=== PATIENT | female | born 1985 | race Caucasian/White ===

== ENCOUNTER 2017-10-14 16:08 | Observation (INO) | payer MEDICAID, SELFPAY ==
[2017-10-14 16:09] VITALS: BP 150/93; PULSE 83; RESP 18; TEMP 36.6; O2SAT 100; BMI 30.7
--- NOTE | 2017-10-14 16:28 | CT_ITS ---
STUDY: CT ABDOMEN AND PELVIS WITH CONTRAST REASON FOR EXAM: Female, 32 years old. Right upper quadrant pain RADIATION DOSAGE (If Supplied By Facility): CTDIvol = ( 17.76 ) mGy, DLP = ( 1170.06 ) mGycm TECHNIQUE: Transaxial images were obtained from the dome of the diaphragm to the symphysis pubis without oral contrast. 100mL ml of Isovue 300 contrast was administered. Sagittal and coronal images were reconstructed. Individualized dose optimization techniques were used for this CT. COMPARISON: None. FINDINGS: The visualized lung bases are unremarkable. The visualized portions of the heart are within normal limits. Normal liver. Status post cholecystectomy. No significant dilatation of the extrahepatic biliary system. Normal spleen. Normal pancreas. Normal bilateral adrenal glands. Normal right kidney. Normal left kidney. Normal visualized stomach. Normal small intestine. Normal colon. The appendix is visualized and appears normal. Normal abdominal aorta. Normal inferior vena cava. Normal retroperitoneum. Normal urinary bladder. There are surgical clips in the right inguinal region. 1.3 cm right adnexal cystic nodule. Possible left adnexal 2 cm cystic nodule. Skin thickening and increased attenuation is noted of the right anterior abdominal wall. Normal osseous structures. CT/Abdomen/Pelvis WITH Contrast IMPRESSION: Skin thickening and increased attenuation is noted of the right anterior abdominal wall. Bilateral adnexal cystic nodules. Correlate with pelvic ultrasound if needed. Electronically Signed: Thierry Nichols DO at 18:56 EDT Tel [phone], Service support ,
--- NOTE | 2017-10-14 16:31 | ED.DCSUM_ITS ---
- ER Visit Summary Date of Service: 10/14/17 Chief Complaint: Abdominal pain History of Present Illness: The patient is a 32 F presenting with abdominal pain. Patient states this started approximately one week ago. Pain has been mostly in the right upper quadrant but now also in the right lower quadrant. She states it does not change with eating. History of previous cholecystectomy. She is currently on immunotherapy for stage III melanoma. She was at [facility] yesterday and had lab work done. She continues to have pain today. She has had subjective fever. She has had nausea with no vomiting. She has had diarrhea. Denies urinary complaints. Denies possibility of . Denies other complaints. Physical Examination: Vitals are stable. Patient is afebrile. Alert no acute distress. HEENT exam is unremarkable. Neck is supple. Lungs are clear and equal bilaterally. Heart is regular rate and rhythm. Abdomen is soft right upper and lower quadrant tenderness with no rebound or guarding Extremities are unremarkable. Skin is warm and dry. Remainder of exam is unremarkable. Emergency Department Course and Treatment: Patient is given morphine, phenergan IV. CBC is white count 4.0, hemoglobin 11.6, platelets 135. Chemistries show creatinine 1.09. ALT 63, AST 42, lipase 132. Urinalysis unremarkable. HCG negative. CT abdomen pelvis shows skin thickening in the right anterior abdominal wall, bilateral adnexal cystic nodules. On repeat evaluation, her pain is now in the right upper quadrant under her right lower ribs. She states it is worse when she takes a deep inspiration. She now notes feeling lightheaded intermittently over the past few days. D-dimer was obtained and is 0.53. Unable to obtain CTA chest due to previous contrast given. Ultrasound bilateral lower extremities was obtained and shows no evidence of DVT. On further discussion with the patient she continues to have severe pain. She is given Dilaudid ?2. Will discuss with the hospitalist for admission for intractable pain, rule out PE. Disposition: Admission Impression: Intractable pain, history of stage III melanoma This note was generated with [employer] dictation software. It may contain incorrect words, spelling, and punctuation that were not noted in review of the chart prior to signing ED Disposition - Plan for ED Patient: Chief Complaint: Abd Pain Referrals: Jennie Diamond PA [Primary Care Provider] -
[2017-10-14 16:46] LABS: Bacteria 0 SEEN /hpf (None Seen); Mucous, Urine 0 SEEN /hpf (<or=2+); Red Blood Cells-Urine 0 SEEN /hpf (0-5); White Blood Cells 0 SEEN /hpf (0-5)
[2017-10-14 16:53] LABS: Color, Urine Yellow (Yellow); Glucose, Dipstick Normal (Normal); Ketone-Dipstick Negative (Negative); Leukocyte Esterase-Dipstick Negative /ul (Negative); Nitrite-Dipstick Negative (Negative); Occult Blood-Urine Negative /ul (Negative); Protein-Dipstick Negative (Negative); Urine Bilirubin Dipstick Negative (Negative); Urine Clarity Sl. Cloudy (Clear); Urine Urobilinogen Normal (Normal)
[2017-10-14 17:01] LABS: Squamous Epithelial Cells - UA 0-5 SEEN /hpf (5-10)
[2017-10-14 17:14] LABS: Absolute Lymphocyte Count 2.06 X10^3/ul (0.83-4.51); Absolute Neutrophil Count 1.6 X10^3/uL (2.0-7.7); Basophil# 0.01 X10^3/uL; Basophil% 0.3 % (0-1); Eosinophil# 0.06 X10^3/uL; Eosinophils% 1.5 % (0-5); Hematocrit 33.8 % (37-47); Hemoglobin 11.6 g/dl (12.0-15.0); Lymphocyte # 2.06 X10^3/ul (4.0); Lymphocyte % 51.5 % (19-41); Mean Corp Hgb Conc 34.3 g/gl (32-36); Mean Corpuscular Hgb 28.7 pg (27.0-32.0); Mean Corpuscular Volume 83.7 fL (81-99); Mean Platelet Vol. 10.4 fl (6.2-12.0); Monocyte# 0.26 X10^3/uL; Monocyte% 6.5 % (0-10); Neutrophil # 1.61 X10^3/uL (2.7-7.7); Neutrophil % 40.2 % (47-70); POSITIVE COUNT NO; POSITIVE DIFFERENTIAL NO; POSITIVE MORPHOLOGY NO; Platelet Count 135 K/mm3 (150-450); RBC Distribution Width CV 15.2 % (11.6-14.6); RBC Distribution Width SD 46.8 fl (35.1-43.9); Red Blood Count 4.04 M/mm3 (4.2-5.4)
[2017-10-14] MEDS: proMETHazine 25 MG/ML Syringe 6.25 MG IV (17:31)
[2017-10-14] MEDS: Morphine 4 MG/ML Syringe IV (17:31)
[2017-10-14] MEDS: 0.9% Normal Saline 1,000 ML 1000 ML IV (17:31)
[2017-10-14 17:35] LABS: ALB/GLOB Ratio 0.9 RATIO (0.9-2.4); AST(SGOT) 42 U/L (15-37); Alanine Aminotransfer ALT/SGPT 63 U/L (13-56); Albumin, Serum 3.9 g/dL (3.2-5.0); Alkaline Phosphatase 56 U/L (45-117); Anion Gap 6 (5-15); BUN 11 mg/dL (7-18); BUN/Creat Ratio 10.1 RATIO (10-20); Calcium,Total 8.8 mg/dL (8.5-10.1); Chloride 107 mmol/L (98-107); Creatinine, Serum 1.09 mg/dL (0.55-1.02); EST Glomerular Filtration Rate 61 mL/min (>60); Est Glom Filt Rate - Afr Amer 74 mL/min (>60); Estimated Creatinine Clearance 68.72 ml/min; Globulin 4.3 g/dL (2.2-4.2); Glucose 81 mg/dL (74-106); Lipase 132 U/L (73-393); Potassium 4.1 mmol/L (3.5-5.1); Protein, Total 8.2 g/dL (6.4-8.2); Sodium Level 139 mmol/L (136-145)
[2017-10-14 17:39] LABS: Pregnancy, Serum, hCG Quali. NEGATIVE Negative (0-9 Nonpreg)
[2017-10-14] MEDS: HYDROmorphone 1 MG/ML Syringe IV ×2 (18:30→22:40)
[2017-10-14 18:31] VITALS: BP 121/88; PULSE 74; RESP 16; O2SAT 100
[2017-10-14 19:55] LABS: D-Dimer Quantitative (DVT/PE) 0.53 FEU/ug/m (0.27-0.49)
[2017-10-14 20:00] VITALS: RESP 16
--- NOTE | 2017-10-14 20:03 | US_ITS ---
STUDY: VENOUS DOPPLER ULTRASOUND - BILATERAL LOWER EXTREMITIES REASON FOR EXAM: Female, 32 years old. Limited d-dimer TECHNIQUE: Ultrasound evaluation of the deep vein system to include brush-scale imaging and compression was performed. Brush-scale imaging and Doppler sonographic evaluation, including duplex spectral analysis and qualitative color flow sonography, was performed. COMPARISON: None. FINDINGS: RIGHT LEG Common Femoral Vein: Normal compression, spontaneity and augmentation. Normal color Doppler. Common Femoral Vein/Greater Saphenous Junction: Normal compression and spontaneity. Femoral Proximal: Normal compression and spontaneity. Femoral Middle: Normal compression, spontaneity and augmentation. Normal color Doppler. Femoral Distal: Normal compression and spontaneity. Popliteal Vein: Normal compression, spontaneity and augmentation. Normal color Doppler. Posterior Tibial Vein: Normal compression and spontaneity. Peroneal Vein: Normal compression and spontaneity. LEFT LEG Common Femoral Vein: Normal compression, spontaneity and augmentation. Normal color Doppler. Common Femoral Vein/Greater Saphenous Junction: Normal compression and spontaneity. Femoral Proximal: Normal compression and spontaneity. Femoral Middle: Normal compression, spontaneity and augmentation. Normal color Doppler. Femoral Distal: Normal compression and spontaneity. Popliteal Vein: Normal compression, spontaneity and augmentation. Normal color Doppler. Posterior Tibial Vein: Normal compression and spontaneity. Peroneal Vein: Normal compression and spontaneity. US/Venous Duplex Imag/Kevin Extrem IMPRESSION: Normal venous Doppler ultrasound of the bilateral lower extremities. Electronically Signed: Thierry Nichols DO at 22:02 EDT Tel [phone], Service support ,
--- NOTE | 2017-10-14 21:56 | ED.RN ---
PT REQUESTING PAIN MEDICATION, DR. DORADO AWARE.
[2017-10-14 22:11] VITALS: RESP 16
[2017-10-14 22:41] VITALS: BP 129/85; PULSE 76; RESP 16; O2SAT 98
--- NOTE | 2017-10-14 23:08 | HP.PCM_ITS ---
Problem List (1) Melanoma Status: Acute History of Present Illness Date of Admission: 10/14/17 Chief Complaint: Abdominal pain The patient is a 32 year old female w/ h/o HTN and melanoma admitted for abdominal pain. Pt has right upper quadrant pain. Pain has been there for weeks. Nothing appeared to make it better or worse. It is occasional sharp. Pain is episodic. Pain has been getting worse in the past few days. No association of pain to any other symptoms. No radiation of pain. She was diagnosis with melanoma about a year ago and is undergoing interferon treatment. Past Medical History Allergies No Known Allergies Allergy (Verified 10/14/17 16:10) Home Medications: Ambulatory Orders Medication Instructions Recorded ALPRAZolam [Xanax] 0.25 mg PO TID PRN PRN 10/14/17 Citalopram [Celexa] 20 mg PO QHS 10/14/17 Interferon Philip-2B,Recomb. [Intron 20,000,000 unit SQ MOWEFR 10/14/17 A] Lisinopril [Zestril] 10 mg PO DAILY 10/14/17 Surgical History: cholecystectomy Lives: Spouse/ Significant Other Smoking Status: Current some day smoker Alcohol: None Drugs: None - *Family History Maternal History Items: No pertinent history Review of Systems Constitutional: Denies: Chills, Fever, Weight Change HEENT: Denies: Head Aches, Sinus Congestion, Sinus Drainage Cardiovascular: Denies: Chest Pain, Palpitations Respiratory: Denies: Cough, Shortness of breath at rest, Sputum production Gastrointestinal: Denies: Abdominal Pain, Nausea, Vomiting Genitourinary: Denies: Dysuria Musculoskeletal: Denies: Joint Pain, Joint Tenderness Skin: Denies: Rash, Wounds Neurological: Denies: Numbness, Tingling, Focal weakness Psychiatric: Denies: Anxiety, Depression, Homicidal Ideations, Suicidal Ideations Hematologic/ Lymphatic: Denies: Easy Bruising, Easy Bleeding VTE Information - Inpt Only VTE Present on Admission: No VTE Mechan Device Prophylaxis: SCD's VTE Pharm Prophylaxis ordered?: Yes Patient Problems: Active and Suspected Problems Melanoma (Acute) - Physical Exam General: Alert, Oriented x3, Cooperative HEENT: Atraumatic, PERRLA, EOMI, Normocephalic Neck: Supple, No JVD, Negative Carotid Bruits Lungs: Clear to auscultation, Normal air movement Cardiovascular: Regular rate, No murmurs Abdomen: Bowel Sounds Present, Soft, Non Tender Extremities: No edema, Capillary Refill Less than 3 Seconds Skin: No rashes, No breakdown Musculoskeletal: No Tenderness to Palpation of Joints or Extremities Neurological: Cranial nerves II-XII grossly intact Psych/Mental Status: Normal Affect, Appropriate Vital Signs Temp Pulse Resp BP Pulse Ox 97.8 F 76 16 129/85 H 98 10/14/17 16:09 10/14/17 22:41 10/14/17 22:41 10/14/17 22:41 10/14/17 22:41 Oxygen Delivery Method Room Air Weight: 86.183 kg Body Mass Index (BMI) 30.7 Laboratory Tests Past 24 Hrs 10/14/17 10/14/17 10/14/17 16:37 16:55 16:55 WBC 4.0 L RBC 4.04 L Hgb 11.6 L Hct 33.8 L MCV 83.7 MCH 28.7 MCHC 34.3 RDW 15.2 H RDW Differential 46.8 H Plt Count 135 L MPV 10.4 Immature Gran % (Auto) 0.000 Neut % (Auto) 40.2 L Lymph % (Auto) 51.5 H [place] % (Auto) 6.5 Eos % (Auto) 1.5 Baso % (Auto) 0.3 Absolute Neuts (auto) 1.6 L Absolute Lymphs (auto) 2.06 Total Counted Not Reportable D-Dimer Quant (PE/DVT) Sodium 139 Potassium 4.1 Chloride 107 Carbon Dioxide 26.0 Anion Gap 6 BUN 11 Creatinine 1.09 H Estim Creat Clear Calc 68.72 Est GFR (MDRD) Af Amer 74 Est GFR (MDRD) Non-Af 61 BUN/Creatinine Ratio 10.1 Glucose 81 Calcium 8.8 Total Bilirubin 0.20 AST 42 H ALT 63 H Alkaline Phosphatase 56 Total Protein 8.2 Albumin 3.9 Globulin 4.3 H Albumin/Globulin Ratio 0.9 Lipase 132 Serum , Qual Urine Color Yellow Urine Clarity Sl. Cloudy Urine pH 6.0 Ur Specific [place] 1.010 Urine Protein Negative Urine Glucose (UA) Normal Urine Ketones Negative Urine Occult Blood Negative Urine Nitrite Negative Urine Bilirubin Negative Urine Urobilinogen Normal Ur Leukocyte Esterase Negative Urine RBC 0 SEEN Urine WBC 0 SEEN Ur Squamous Epith Cells 0-5 SEEN Urine Bacteria 0 SEEN Urine Mucus 0 SEEN 10/14/17 10/14/17 16:55 16:55 WBC RBC Hgb Hct MCV MCH MCHC RDW RDW Differential Plt Count MPV Immature Gran % (Auto) Neut % (Auto) Lymph % (Auto) [place] % (Auto) Eos % (Auto) Baso % (Auto) Absolute Neuts (auto) Absolute Lymphs (auto) Total Counted D-Dimer Quant (PE/DVT) 0.53 H* Sodium Potassium Chloride Carbon Dioxide Anion Gap BUN Creatinine Estim Creat Clear Calc Est GFR (MDRD) Af Amer Est GFR (MDRD) Non-Af BUN/Creatinine Ratio Glucose Calcium Total Bilirubin AST ALT Alkaline Phosphatase Total Protein Albumin Globulin Albumin/Globulin Ratio Lipase Serum , Qual NEGATIVE Urine Color Urine Clarity Urine pH Ur Specific [place] Urine Protein Urine Glucose (UA) Urine Ketones Urine Occult Blood Urine Nitrite Urine Bilirubin Urine Urobilinogen Ur Leukocyte Esterase Urine RBC Urine WBC Ur Squamous Epith Cells Urine Bacteria Urine Mucus Assessment/Plan All Active Problems Melanoma (Acute) 32 year old female w/ h/o HTN and melanoma admitted for abdominal pain. 1) Abdominal pain: Most likely MSK. Pt was laughing when I examined her. Pain improved. CT abdominal negative. Will get CTA in AM to r/o PE. Probably can be discharge afterward. 2) H/o melanoma: Resume interferon outpt.
[2017-10-14 23:10] VITALS: BP 129/85; PULSE 76; RESP 16; O2SAT 98
[2017-10-14 23:44] VITALS: BMI 33.5
[2017-10-15] VITALS (7 sets, daily range): BP systolic 109–122; BP diastolic 69–82; PULSE 61–70; RESP 14–18; TEMP 36.4–37.2; O2SAT 98–100
[2017-10-15] MEDS: 0.9% Normal Saline 1,000 ML 125 ML IV ×2 (00:16→08:07)
[2017-10-15] MEDS: oxyCODONE 5 MG Tablet PO ×4 (00:16→15:57)
[2017-10-15] MEDS: Heparin Injection (Vial) 5,000 UNIT/ML VIAL 5000 UNIT SC (06:27)
[2017-10-15 07:37] LABS: Absolute Lymphocyte Count 1.96 X10^3/ul (0.83-4.51); Absolute Neutrophil Count 1.4 X10^3/uL (2.0-7.7); Eosinophil# 0.06 X10^3/uL; Eosinophils% 1.6 % (0-5); Hematocrit 30.7 % (37-47); Hemoglobin 10.3 g/dl (12.0-15.0); Lymphocyte # 1.96 X10^3/ul (4.0); Lymphocyte % 52.1 % (19-41); Mean Corp Hgb Conc 33.6 g/gl (32-36); Mean Corpuscular Volume 86.5 fL (81-99); Mean Platelet Vol. 10.1 fl (6.2-12.0); Monocyte# 0.34 X10^3/uL; Neutrophil # 1.39 X10^3/uL (2.7-7.7); Platelet Count 137 K/mm3 (150-450); RBC Distribution Width SD 46.2 fl (35.1-43.9); Red Blood Count 3.55 M/mm3 (4.2-5.4); White Blood Count 3.8 K/mm3 (4.4-11.0)
[2017-10-15 07:40] LABS: POSITIVE COUNT NO; POSITIVE DIFFERENTIAL NO; POSITIVE MORPHOLOGY NO
[2017-10-15 07:46] LABS: Anion Gap 3 (5-15); BUN 11 mg/dL (7-18); BUN/Creat Ratio 9.7 RATIO (10-20); Calcium,Total 7.7 mg/dL (8.5-10.1); Chloride 112 mmol/L (98-107); Creatinine, Serum 1.13 mg/dL (0.55-1.02); EST Glomerular Filtration Rate 59 mL/min (>60); Est Glom Filt Rate - Afr Amer 71 mL/min (>60); Estimated Creatinine Clearance 66.29 ml/min; Glucose 81 mg/dL (74-106); Potassium 4.4 mmol/L (3.5-5.1); Sodium Level 145 mmol/L (136-145)
[2017-10-15] MEDS: Lisinopril 10 MG Tablet PO (08:14)
--- NOTE | 2017-10-15 08:47 | CASEMGMT ---
ALEAH met with patient as she is self pay. She said she just lost her insurance as she was just laid off. She has a primary care doctor. She just applied for Medicaid with [employer]. ALEAH did give her [email or web address] website information as well as [employer]. She lives in [facility] so is not eligible for assistance from [employer] or [employer]. Angelika VICENTE MSW
[2017-10-15] MEDS: proMETHazine 25 MG/ML Syringe 6.25 MG IV (10:58)
[2017-10-15] MEDS: 0.9% NaCl Peripheral Flush Adult/Peds IV (10:58)
--- NOTE | 2017-10-15 12:49 | CT_ITS ---
STUDY: CTA CHEST REASON FOR EXAM: Female, 32 years old. Elevated d-dimer. RADIATION DOSAGE (If Supplied By Facility): CTDIvol = ( 16.72 ) mGy, DLP = ( 637.80 ) mGycm TECHNIQUE: The examination was performed with the intravenous administration of 100 ml of Isovue 370 contrast material. Post-processing of the angiographic images was performed, with multiplanar reformation and 3D reconstruction. Individualized dose optimization techniques were used for this CT. COMPARISON: None. FINDINGS: Normal enhancement of the main pulmonary artery and right and left pulmonary arteries. Normal enhancement of the bilateral peripheral pulmonary arteries. There is no demonstrated pulmonary embolism. Normal thoracic aorta and visualized great vessels. There is no demonstrated aortic dissection. Normal heart and pericardium. Normal mediastinum. Normal hilar regions. Normal visualized trachea and bronchi. The lungs are well expanded. There is likely atelectasis overlying the left lower lobe medial segment as seen on series 2 image 61 measuring 11 mm however underlying nodule cannot be completely excluded. Normal pleura. Normal chest wall structures. Normal osseous structures. Normal visualized upper abdomen. CT/CTA Chest W/WO Contrast IMPRESSION: 1. No evidence of pulmonary embolism or aortic dissection. No evidence of acute cardiothoracic process. 2. Left lower lobe medial segment likely atelectasis however underlying nodule is not excluded (series 2 image 61). Recommend follow-up imaging in 3-4 months to document resolution. Electronically Signed: Maxi Junior DO at 14:00 EDT , Service support ,
--- NOTE | 2017-10-15 15:12 | DCINST_ITS ---
- Discharge Diagnoses Current Active Problems: Current Active and Chronic Problems Melanoma (Acute) You will use the following diet at home:: Regular Your food should be the consistency of: Regular Discharge Activity: Return to Normal Activity Weight Bearing Status: Full weight bearing Call your doctor if you observe: Fever of 101 or Higher, Shortness of breath, Dizziness, Fainting spells, Chest pain, Increased palpitations (irregular heartbeat), Uncontrolled pain Additional Instructions: Use Tylenol or ibuprofen [id number] as needed for pain. You can use OxyIR as needed for severe pain. Allergies/Adverse Reactions: Allergies ondansetron [From Zofran] Adverse Reaction (Severe, Verified 10/15/17 10:29) Other migraines Medications to take at Discharge ALPRAZolam [Xanax] 0.25 mg PO TID PRN PRN 10/14/17 Citalopram [Celexa] 20 mg PO QHS 10/14/17 Interferon Philip-2B,Recomb. [Intron A] 20,000,000 unit SQ MOWEFR 10/14/17 Lisinopril [Zestril] 10 mg PO DAILY 10/14/17 Oxycodone [Oxyir] 5 mg PO Q8H PRN PRN 2 Days #6 tab 10/15/17 The following prescriptions were given: Oxycodone [Oxyir] 5 mg PO Q8H PRN PRN 2 Days #6 tab PRN Reason: pain Primary Care Physician: Jennie Diamond PA [Primary Care Provider] - Please follow up with your Primary Care Physician in: 1 week. Test Results: Test results from this visit will be discussed in further detail at your follow- up appointment, if applicable.
--- NOTE | 2017-10-15 16:24 | PCM.DC.SUM ---
Discharge Date and Diagnosis Date of Admission: 10/14/17 Date of Discharge: 10/15/17 - Primary Discharge Diagnosis #1 right lateral chest/right upper quadrant abdominal pain, unclear etiology, presumed to be due to pleurisy. #2 elevated d-dimer, CTA chest negative for PE. #3 left lower lobe atelectasis, questionable nodule cannot be ruled out. Hospital Course and Treatment Imaging Results: 10/15/17 12:49 CTA Chest W/WO Contrast [CT] Stat Clinical Impression(s) from Imaging Studies Abdomen/Pelvis CT 10/14/17 16:28 IMPRESSION: Skin thickening and increased attenuation is noted of the right anterior abdominal wall. Bilateral adnexal cystic nodules. Correlate with pelvic ultrasound if needed. Electronically Signed: Thierry Nichols DO at 18:56 EDT Tel [phone], Service support , Venous Duplex 10/14/17 20:03 IMPRESSION: Normal venous Doppler ultrasound of the bilateral lower extremities. Electronically Signed: Thierry Nichols DO at 22:02 EDT Tel [phone], Service support , Chest CTA 10/15/17 12:49 IMPRESSION: 1. No evidence of pulmonary embolism or aortic dissection. No evidence of acute cardiothoracic process. 2. Left lower lobe medial segment likely atelectasis however underlying nodule is not excluded (series 2 image 61). Recommend follow-up imaging in 3-4 months to document resolution. Electronically Signed: Maxi Junior DO at 14:00 EDT , Service support , Operations: None Procedures: EKG Summary of Care Provided: Patient seen and examined on the day of discharge and appeared to be stable to be discharged home. She mentioned that her pain is getting better. Denied anterior chest pain or shortness of breath. She complains of mild nausea. Her vital signs are stable. - Physical Exam General: Alert, Oriented x3, Cooperative, No apparent distress. HEENT: Atraumatic, PERRLA, EOMI. Neck: Supple, No JVD, Negative Carotid Bruits, Trachea Midline, Thyroid Normal. Lungs: Clear to auscultation, Normal air movement, No rhonchi, No wheeze, No rales. Cardiovascular: Regular rate, Regular Rhythm, Normal S1, Normal S2, PMI Normal. Abdomen: Bowel Sounds Present, Soft, Non Tender, Non-Distended, No Hepato-splenomegaly. Extremities: No clubbing, No cyanosis, No edema Skin: No rashes, No breakdown Neurological: Neuro grossly intact Vital Signs are stable. Hospital course: The patient is a 32 year old F admitted because of vague right lateral chest/right upper quadrant abdominal pain which apparently has been there for couple of weeks and it is intermittent. CT scan abdomen and pelvis with contrast done on admission and revealed no evidence of acute intra-abdominal findings that can explain this pain. The CAT scan revealed bilateral adnexal cystic nodules. Her EKG was unremarkable. Her routine blood work was remarkable for chronic anemia, otherwise normal. Her LFT and lipase were normal. She is status post cholecystectomy. Serum test was negative. Urinalysis revealed no evidence of acute cystitis. D-dimer was elevated at 0.53. She was not hypoxic or tachycardic. CTA chest done and revealed no evidence of PE or dissection, revealed left lower lobe atelectasis with possible underlying nodule which is not project [employer] to the pain the patient had. Venous Doppler of the bilateral lower extremity also performed and revealed no evidence of acute DVT. Patient had a history of melanoma and she has been on treatment. There was no clear etiology for this right lateral chest/right upper quadrant abdominal pain. It is presumed to be due to pleurisy. I spoke with the patient about the CTA chest findings and about the possible left lower lobe nodule and need for follow-up CT scan chest in 3-6 months. Patient discharged home in a stable medical condition, discharged on OxyIR as needed for pain, recommended to use Tylenol or ibuprofen as needed for pain first, recommended follow-up with PCP in 1 week. Patient will probably need follow-up CT scan chest in 3-6 months for follow-up for the possible left lower lobe nodule. Discharge Activity: Return to Normal Activity Weight Bearing Status: Full weight bearing Call your doctor if you observe: Fever of 101 or Higher, Shortness of breath, Dizziness, Fainting spells, Chest pain, Increased palpitations (irregular heartbeat), Uncontrolled pain Home Medications: Medications to take at Discharge ALPRAZolam [Xanax] 0.25 mg PO TID PRN PRN 10/14/17 Citalopram [Celexa] 20 mg PO QHS 10/14/17 Interferon Philip-2B,Recomb. [Intron A] 20,000,000 unit SQ MOWEFR 10/14/17 Lisinopril [Zestril] 10 mg PO DAILY 10/14/17 Oxycodone [Oxyir] 5 mg PO Q8H PRN PRN 2 Days #6 tab 10/15/17 Following Prescrptions Were Given to Patient: Oxycodone [Oxyir] 5 mg PO Q8H PRN PRN 2 Days #6 tab PRN Reason: pain Primary Care Physician: Jennie Diamond PA [Primary Care Provider] - Please follow up with your Primary Care Physician in: 1 week. Disposition: Home Minutes spent on discharge:: 28 Patient Condition:: Stable Medical Necessity - Tobacco Use Smoking Status: Current some day smoker Tobacco Use: Cigarettes Meaningful Use Info Meaningful Use Diagnoses (Choose all that apply): None applicable Code Visit OBSV E&M: 02243 Observation care discharge
== END 2017-10-15 16:20 | disposition home or self-care (01) ==
LOC: ED 22:25 → MS3 23:15
PROVIDERS: Admitting Provider Internal Medicine; Emergency Provider Emergency Medicine; Family Provider Physician Assistant; PCP Physician Assistant; Visit Provider Hospitalist
DX: R10.11 Right upper quadrant pain (principal); R07.89 Other chest pain; J98.11 Atelectasis; C43.9 Malignant melanoma of skin, unspecified; Z79.899 Other long term (current) drug therapy; R19.7 Diarrhea, unspecified; I10 Essential (primary) hypertension; F32.9 Major depressive disorder, single episode, unspecified; F17.210 Nicotine dependence, cigarettes, uncomplicated; R79.89 Other specified abnormal findings of blood chemistry
CPT/HCPCS: 36415; 71275; 74177; 80048; 80053; 81001; 83690; 84703; 85025; 85379; 93970; 96361; 96372; 96374; 96375; 96376; 97802; 99218; 99285; J7030; Q9967; A4216; G0378

== ENCOUNTER 2017-10-27 19:40 | Emergency (ER) | payer MEDICAID, SELFPAY ==
[2017-10-27 19:41] VITALS: BP 149/98; PULSE 85; RESP 17; TEMP 37.1; O2SAT 100; BMI 31.7
[2017-10-27] MEDS: proMETHazine 25 MG/ML Syringe 6.25 MG IV (20:23)
[2017-10-27] MEDS: Morphine 4 MG/ML Syringe IV (20:24)
[2017-10-27 20:25] LABS: Absolute Lymphocyte Count 1.32 X10^3/ul (0.83-4.51); Absolute Neutrophil Count 2.4 X10^3/uL (2.0-7.7); Basophil# 0.01 X10^3/uL; Basophil% 0.3 % (0-1); Eosinophil# 0.04 X10^3/uL; Hematocrit 31.5 % (37-47); Hemoglobin 10.6 g/dl (12.0-15.0); Lymphocyte # 1.32 X10^3/ul (4.0); Lymphocyte % 33.3 % (19-41); Mean Corp Hgb Conc 33.7 g/gl (32-36); Mean Corpuscular Hgb 28.4 pg (27.0-32.0); Mean Corpuscular Volume 84.5 fL (81-99); Mean Platelet Vol. 9.2 fl (6.2-12.0); Monocyte# 0.22 X10^3/uL; Monocyte% 5.6 % (0-10); Neutrophil # 2.36 X10^3/uL (2.7-7.7); Neutrophil % 59.5 % (47-70); Platelet Count 115 K/mm3 (150-450); RBC Distribution Width CV 15.2 % (11.6-14.6); Red Blood Count 3.73 M/mm3 (4.2-5.4)
[2017-10-27 20:26] LABS: POSITIVE COUNT NO; POSITIVE DIFFERENTIAL NO; POSITIVE MORPHOLOGY NO
--- NOTE | 2017-10-27 20:30 | RAD_ITS ---
STUDY: X-RAY - ACUTE ABDOMINAL SERIES REASON FOR EXAM: Female, 32 years old. Abdominal pain TECHNIQUE: Single view of the chest. Supine, and erect view(s) of the abdomen were obtained. COMPARISON: CT abdomen and pelvis dated October 14, 2017 FINDINGS: There is low volume inspiration. There are minimal increased markings in both lung bases. There is no demonstrated pleural abnormality. The cardiac silhouette is normal in size. No significant abnormalities are seen in the mediastinum and hilar regions. The pulmonary arteries are unremarkable. The thoracic aorta is unremarkable. The bowel gas pattern is unremarkable. There is no demonstrated abnormality of the major organs. Cholecystectomy clips are present. There are phleboliths in the lower right pelvis. There are numerous surgical clips in the right inguinal region. The osseous structures are unremarkable. RAD/Acute Abdomen Inc Chest IMPRESSION: No acute abnormalities are seen in the chest, abdomen or pelvis. There is minimal bibasilar atelectasis. Electronically Signed: Jazmín Laguna MD at 21:10 EDT Tel Direct: [phone], Service support ,
[2017-10-27 20:40] LABS: ALB/GLOB Ratio 0.9 RATIO (0.9-2.4); AST(SGOT) 44 U/L (15-37); Alanine Aminotransfer ALT/SGPT 69 U/L (13-56); Alkaline Phosphatase 62 U/L (45-117); Anion Gap 4 (5-15); BUN 12 mg/dL (7-18); BUN/Creat Ratio 10.2 RATIO (10-20); Chloride 105 mmol/L (98-107); Creatinine, Serum 1.18 mg/dL (0.55-1.02); EST Glomerular Filtration Rate 56 mL/min (>60); Est Glom Filt Rate - Afr Amer 68 mL/min (>60); Estimated Creatinine Clearance 65.94 ml/min; Globulin 4.4 g/dL (2.2-4.2); Glucose 87 mg/dL (74-106); Lipase 110 U/L (73-393); Potassium 3.9 mmol/L (3.5-5.1); Protein, Total 8.4 g/dL (6.4-8.2); Sodium Level 140 mmol/L (136-145)
[2017-10-27 20:50] LABS: Pregnancy, Serum, hCG Quali. NEGATIVE Negative (0-9 Nonpreg)
[2017-10-27 21:26] VITALS: BP 140/102; PULSE 76; RESP 15; O2SAT 99
--- NOTE | 2017-10-27 22:08 | ED.DCSUM_ITS ---
- ER Visit Summary Date of Service: 10/27/17 Chief Complaint: Abdominal pain History of Present Illness: The patient is a 32 F presenting with abdominal pain ?3 weeks. Patient complains of right upper quadrant abdominal pain. She has been taking ibuprofen at home with no relief. She was seen in the emergency department on October 14 and admitted for intractable pain. She was discharged the following day. She has not followed up with her oncologist yet. She has a history of melanoma and is on chemotherapy. She states she has been on the same chemotherapy for the past year. She has nausea and vomiting. Denies fever. She has history of previous cholecystectomy. Physical Examination: Vitals are stable. Patient is afebrile. Alert no acute distress. HEENT exam is unremarkable. Neck is supple. Lungs are clear and equal bilaterally. Heart is regular rate and rhythm. Abdomen is soft RUQ tenderness, no rebound or guarding. Extremities are unremarkable. Skin is warm and dry. Remainder of exam is unremarkable. Emergency Department Course and Treatment: Patient is given morphine, Phenergan. CBC shows a white count of 4.0, hemoglobin 10.6, glucose 115. Creatinine 1.18. ALT 69, AST 44, lipase 110. HCG negative. Abdominal series shows no acute process. Patient is resting comfortably on reevaluation. She is advised to follow-up with Dr. Garza. She is advised return to ED if she has any worsening complaints. Disposition: Discharge home Impression: Abdominal pain This note was generated with [employer] dictation software. It may contain incorrect words, spelling, and punctuation that were not noted in review of the chart prior to signing ED Disposition - Plan for ED Patient: Chief Complaint: Abd Pain Referrals: Jennie Diamond PA [Primary Care Provider] -
--- NOTE | 2017-10-27 22:13 | ED.DEP ---
ED Disposition - Plan for ED Patient: Chief Complaint: Abd Pain Instructions: ED Abdominal Pain Unkn Cause Prescriptions: Oxycodone HCl/Acetaminophen [Percocet 5/325] 1 tablet PO Q6H PRN PRN 3 Days #12 tablet PRN Reason: Pain Referrals: Jennie Diamond PA [Primary Care Provider] - Alex Garza DO [STAFF PHYSICIAN] -
[2017-10-27 22:25] VITALS: BP 148/88; PULSE 74; RESP 15; O2SAT 100
[2017-10-27] MEDS: oxyCODONE 5 MG Tablet PO (22:26)
== END 2017-10-27 22:32 | disposition home or self-care (01) ==
LOC: ED 20:47
PROVIDERS: Emergency Provider Emergency Medicine; Family Provider Physician Assistant; PCP Physician Assistant
DX: R10.11 Right upper quadrant pain (principal); C43.9 Malignant melanoma of skin, unspecified; Z90.49 Acquired absence of other specified parts of digestive tract; Z79.899 Other long term (current) drug therapy; Z72.0 Tobacco use
CPT/HCPCS: 74022; 80053; 83690; 84703; 85025; 96361; 96374; 96375; 99284; J7030; J7040

== ENCOUNTER 2017-12-15 20:40 | Emergency (ER) | payer MEDICAID, SELFPAY ==
[2017-12-15 20:41] VITALS: BP 148/96; PULSE 94; RESP 18; TEMP 37; O2SAT 100; BMI 32.4
[2017-12-15 21:37] LABS: Mucous, Urine 0 SEEN /hpf (<or=2+)
[2017-12-15 21:38] LABS: Color, Urine Yellow (Yellow); Glucose, Dipstick Normal (Normal); Ketone-Dipstick Negative (Negative); Leukocyte Esterase-Dipstick 25 /ul (Negative); Nitrite-Dipstick Negative (Negative); Occult Blood-Urine 250 /ul (Negative); Protein-Dipstick 30 mg/dl (Negative); Specific Gravity, Urine 1.025 (1.002-1.030); Urine Bilirubin Dipstick Negative (Negative); Urine Clarity Clear (Clear); Urine Urobilinogen Normal (Normal)
[2017-12-15] MEDS: Ketorolac 15 MG/ML Vial IV (21:44)
[2017-12-15 21:45] LABS: Bacteria RARE /hpf (None Seen); Red Blood Cells-Urine 0-5 SEEN /hpf (0-5); Squamous Epithelial Cells - UA 0-5 SEEN /hpf (5-10); White Blood Cells 5-10 SEEN /hpf (0-5)
[2017-12-15 22:06] LABS: Absolute Lymphocyte Count 2.17 X10^3/ul (0.83-4.51); Absolute Neutrophil Count 5.1 X10^3/uL (2.0-7.7); Basophil# 0.03 X10^3/uL; Basophil% 0.4 % (0-1); Eosinophil# 0.14 X10^3/uL; Eosinophils% 1.7 % (0-5); Hematocrit 32.9 % (37-47); Hemoglobin 11.6 g/dl (12.0-15.0); Lymphocyte # 2.17 X10^3/ul (4.0); Lymphocyte % 26.8 % (19-41); Mean Corp Hgb Conc 35.3 g/gl (32-36); Mean Corpuscular Hgb 30.1 pg (27.0-32.0); Mean Corpuscular Volume 85.2 fL (81-99); Mean Platelet Vol. 9.6 fl (6.2-12.0); Monocyte# 0.66 X10^3/uL; Monocyte% 8.1 % (0-10); Neutrophil # 5.08 X10^3/uL (2.7-7.7); Neutrophil % 62.8 % (47-70); Platelet Count 262 K/mm3 (150-450); RBC Distribution Width CV 13.6 % (11.6-14.6); RBC Distribution Width SD 41.5 fl (35.1-43.9); Red Blood Count 3.86 M/mm3 (4.2-5.4); White Blood Count 8.1 K/mm3 (4.4-11.0)
[2017-12-15 22:09] LABS: Differential Indicated SCAN CRITERIA MET; POSITIVE COUNT NO; POSITIVE DIFFERENTIAL NO; POSITIVE MORPHOLOGY YES
[2017-12-15 22:15] LABS: D-Dimer Quantitative (DVT/PE) 0.33 FEU/ug/m (0.27-0.49)
[2017-12-15 22:19] LABS: Anion Gap 9 (5-15); BUN 14 mg/dL (7-18); BUN/Creat Ratio 12.5 RATIO (10-20); Calcium,Total 9.1 mg/dL (8.5-10.1); Chloride 107 mmol/L (98-107); Creatinine, Serum 1.12 mg/dL (0.55-1.02); EST Glomerular Filtration Rate 59 mL/min (>60); Est Glom Filt Rate - Afr Amer 72 mL/min (>60); Estimated Creatinine Clearance 69.48 ml/min; Glucose 94 mg/dL (74-106); Potassium 4.2 mmol/L (3.5-5.1); Sodium Level 141 mmol/L (136-145)
[2017-12-15 22:30] LABS: Platelet Estimate ADEQUATE (ADEQ); Red Cell Morphology NORM C+C NORMAL (NORM C&C)
--- NOTE | 2017-12-15 22:35 | CT_ITS ---
STUDY: CT CHEST WITHOUT CONTRAST REASON FOR EXAM: Female, 32 years old. Chest pain RADIATION DOSAGE (If Supplied By Facility): CTDIvol = ( 19.19 ) mGy, DLP = ( 747.91 ) mGycm TECHNIQUE: Transaxial imaging was performed without the administration of intravenous contrast material. Individualized dose optimization techniques were used for this CT. COMPARISON: None. FINDINGS: The lungs are expanded. There is left lower lobe parenchymal irregular nodule medially measuring 14 x 8 mm. Normal heart and pericardium. Normal mediastinum. Normal hilar regions. Normal unenhanced pulmonary arteries. Normal aorta arch and descending thoracic aorta. Normal osseous structures. There is no demonstrated abnormality of the visualized upper abdomen. CT/Chest without Contrast IMPRESSION: Small irregular left lower lobe nodule medially. Electronically Signed: Thierry Nichols DO at 23:22 EDT Tel [phone], Service support ,
[2017-12-15] MEDS: Morphine 4 MG/ML Syringe IV (22:41)
[2017-12-15] MEDS: proMETHazine 25 MG/ML Syringe 6.25 MG IV (22:42)
[2017-12-15 22:44] VITALS: BP 133/82; PULSE 79; RESP 18; O2SAT 100
--- NOTE | 2017-12-15 23:01 | ED.VISSUMM ---
- ER Visit Summary Date of Service: 12/15/17 Chief Complaint: Rib pain History of Present Illness: The patient is a 32 F presenting for evaluation secondary to right-sided rib pain. Patient reports that over the course of the last 1-2 weeks she has been dealing with right-sided rib pain worse yesterday. She reports that it is a continuous waxing and waning sharp type pain that is better with activity worse with taking deep breath and palpation. Patient states it has been associated with nausea mild vomiting. Patient was actually recently admitted to the hospital for this and had an extensive workup that was found to be negative. Patient is concerned however because she has a history of melanoma with lymphatic spread. She was on immunotherapy which her last treatment was 3 weeks ago. She denies that she has been having any sort of fever sweats or weight loss. She denies any urinary symptoms associated with this. Review of systems otherwise negative. Physical Examination: Vital signs are within normal limits, patient is afebrile. General: Patient is well-nourished well-developed and in no acute distress. Head: Normocephalic, atraumatic Eyes: Pupils equal round and reactive bilaterally, extra occular motion intact bialterally ENT: Moist mucous membranes Neck: Supple, no lymphadenopathy, no JVD, no meningismus CVS: Heart regular rate and rhythm, no murmurs, rubs or gallops, radial pulses 2+ bilaterally Resp: Respirations nondistressed, lung sounds clear bilaterally, chest is tender over the lower rib margin anteriorly, laterally, and minimally in the posterior region. No evidence of overlying vesicular rash subcutaneous emphysema or deformity. Abdomen: Soft, nontender, nondistended, no palpable masses, normal bowel sounds Back: Nontender Extremities: Nontender, atraumatic, active full range of motion, no peripheral edema Skin: warm, no rashes, no petechia Neuro: Alert and oriented x 4, CN 2-12 intact, no lateralizing neurological defecits Psyc: Normal affect Test Results: CBC unremarkable, chemistry unremarkable, urinalysis shows no evidence of infection or hematuria, troponin negative d-dimer negative. Noncontrasted CT of the chest shows no evidence of bony abnormalities were redemonstrate a left-sided lung nodule that is 14 mm x 8 mm Emergency Department Course and Treatment: Patient presented for evaluation secondary to a reproducible right-sided rib pain. She did have some pain with inspiration and has a history of melanomas that there was at least some concern for the possibility of pulmonary embolus. A d-dimer was obtained and was found to be negative. Laboratory workup as well as urinalysis were found to be unremarkable. I did a noncontrasted CT of the chest on this patient which shows no evidence of bony metastasis per radiology, but did show evidence that the patient has a lung nodule on the left. When I reviewed the patient's prior records it seems that this was present on a CT angiogram she had performed back in September, and it measured 11 mm at that point but was only in one dimension, so I am unsure if this is larger or unchanged. I did contact the patient's oncologist to inform him of this. 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 Patient will be placed on lidocaine patches she was started on one in the emergency department. Patient was discharged in stable condition. Disposition: Discharge Impression: 1. Right-sided rib pain 2. Left-sided lung nodule 3. History of melanoma This note was generated with [employer] dictation software. It may contain incorrect words, spelling, and punctuation that were not noted in review of the chart prior to signing ED Disposition - Plan for ED Patient: Disposition: Home or Assisted Living Chief Complaint: Flank Pain Diagnosis: Chest wall pain Instructions: ED Chest Pain Costochondritis Prescriptions: Lidocaine [Lidoderm Patch] 1 patch TOPICAL DAILY #10 patch Referrals: Alex Garza DO [STAFF PHYSICIAN] - 5-7 Days
[2017-12-15] MEDS: Lidocaine 5% Patch 1 PATCH TOPICAL (23:40)
[2017-12-15 23:41] VITALS: BP 138/75; PULSE 78; RESP 16; O2SAT 97
== END 2017-12-15 23:49 | disposition home or self-care (01) ==
PROVIDERS: Emergency Provider Emergency Medicine; Family Provider Physician Assistant; PCP Physician Assistant
DX: R07.81 Pleurodynia (principal); R91.1 Solitary pulmonary nodule; Z85.820 Personal history of malignant melanoma of skin; Z79.899 Other long term (current) drug therapy
CPT/HCPCS: 71250; 80048; 81001; 84484; 85025; 85379; 96374; 99285; A4216

== ENCOUNTER → 2023-10-26 | Outpatient (CLI) | payer OTHER, SELFPAY ==
--- NOTE | 2023-10-26 12:36 | NEURO ---
NCS and/or EMG Patient Report Ordering Doctor: Josué Villela DATE OF SERVICE: 10/26/23 Sarika presents with intermittent numbness and tingling in the right arm and hand. Electrodiagnostic findings: Right median motor nerve demonstrates normal distal latency, amplitude and conduction velocity. Normal right ulnar motor response, including conduction across the elbow. Normal right median ulnar F?wave. Sensory responses are within normal limits. Needle EMG testing was performed the right upper limb. All muscles tested showed no evidence of denervation with normal motor unit action potentials Electrodiagnostic impression: This is a normal electrodiagnostic study of the right upper limb. There is no electrodiagnostic finding for peripheral neuropathy, including carpal tunnel or cubital tunnel syndrome. There is no electrodiagnostic evidence for cervical radiculopathy. Multi Select Codes Neurology Neurology Interp Codes: 46042-20 Musc test done w/n test comp (interp) and 60155-87 Nrv cndj test 7-8 studies (interp)
== END | disposition home or self-care (01) ==
LOC: PSN 09:29
PROVIDERS: PCP Nurse Practitioner Family; Referring Provider Orthopaedic Surgery; Visit Provider Orthopaedic Surgery
DX: R20.2 Paresthesia of skin (principal)
CPT/HCPCS: 95886; 95910

== ENCOUNTER → 2025-03-08 | Outpatient (CLI) | payer OTHER, SELFPAY ==
[2025-03-08 11:14] LABS: Barbiturate Urine NEGATIVE (< 200 ng/mL); Benzodiazepine Urine NEGATIVE (< 200 ng/mL); PCP Urine NEGATIVE (< 25 ng/mL); THC Urine NEGATIVE (< 50 ng/mL)
== END | disposition home or self-care (01) ==
LOC: LAB 10:26
PROVIDERS: PCP Nurse Practitioner Family; Referring Provider Anesthesiology Pain Medicine; Visit Provider Anesthesiology Pain Medicine
DX: F11.20 Opioid dependence, uncomplicated (principal)
CPT/HCPCS: 80307